=== PATIENT | male | born 1955 | race African-American/Black ===

== ENCOUNTER 2017-01-19 20:59 | Emergency (ER) | payer MEDICAID, OTHER ==
[~2017-01-19] VITALS: Ht 185.4 cm; Wt 88.0 kg
[~2017-01-19 20:59] MED LIST: ALLO100T PO; CLON0.1T PO; COLC0.6T66 PO; DOXA4TAB3 PO; NEPVIT PO; NIFE60TA64 PO; P20 PO; SEVE800T8 PO
[2017-01-19] MEDS ORDERED: MORPHINE SULFATE 4 MG/ML CPJ (NOT FOR IM USE) IV STA (23:18)
[2017-01-19] MEDS ORDERED: ONDANSETRON HCL 4MG/2ML VIAL IV STA (23:18)
[2017-01-19 23:56] LABS: BASOPHILS % 0.7 % (0.0-2.0); EOSINOPHILS % 1.2 % (0.0-5.0); HEMATOCRIT. 35.9 % (42.0-52.0); LYMPHOCYTES % 9.7 % (20.0-50.0); MEAN CORPUSCULAR VOLUME 89.3 fL (80.0-94.0); MEAN PLATELET VOLUME 8.5 fl (7.4-10.4); NEUTROPHILS % 81.4 % (40.0-76.0); PLATELET 208 x1000/uL (130-400); RED BLOOD CELL COUNT 4.02 mill/uL (4.7-6.1); RED CELL DISTRIBUTION WIDTH 16.6 % (11.6-14.6)
[2017-01-20 00:12] LABS: TROPONIN I 0.04 ng/mL (0.00-0.04)
[2017-01-20] MEDS ORDERED: HYDROCODONE/ACETAMINOPHEN 10/325MG TABLET PO ONE (01:45)
[2017-01-20] MEDS ORDERED: LEVOFLOXACIN 500MG TABLET PO ONE (01:45)
[2017-01-20 02:13] VITALS: BP 159/81
== END 2017-01-20 02:17 | disposition home or self-care (01) ==
LOC: ER 20:59
DX: R06.02 Shortness of breath (principal)
CPT/HCPCS: 36415; 71010; 80048; 83605; 84484; 85025; 87040; 93005; 96374; 96375; 99285; J2270; J2405; Z7610

== ENCOUNTER 2017-03-03 13:47 | Emergency (ER) | payer OTHER, MEDICARE ==
[~2017-03-03] VITALS: Ht 185.4 cm; Wt 86.0 kg
[2017-03-03 14:26] VITALS: BP 159/102
== END 2017-03-03 18:13 | disposition home or self-care (01) ==
LOC: ER 14:47
DX: K40.90 Unilateral inguinal hernia, without obstruction or gangrene, not specified as recurrent (principal); I12.9 Hypertensive chronic kidney disease with stage 1 through stage 4 chronic kidney disease, or unspecified chronic kidney disease; N18.9 Chronic kidney disease, unspecified; E11.9 Type 2 diabetes mellitus without complications; Z99.2 Dependence on renal dialysis; Z88.8 Allergy status to other drugs, medicaments and biological substances
CPT/HCPCS: 99283

== ENCOUNTER 2021-06-25 13:12 | Inpatient (IN) | payer MEDICARE, MEDICAID ==
[~2021-06-25] VITALS: Ht 185.4 cm; Wt 83.1 kg
[~2021-06-25 13:12] MED LIST changes: +MINO10TA PO; +NIFE60TA77 PO
[2021-06-25] MEDS ORDERED: FUROSEMIDE 40MG/4ML VIAL IV ONE (13:30)
[2021-06-25 14:14] LABS: HEMATOCRIT. 36.1 % (42.0-52.0); HEMOGLOBIN. 11.8 g/dL (14.0-18.0); MEAN CORPUSCULAR HEMOGLOBIN 30.4 pg (28.0-32.0); MEAN PLATELET VOLUME 7.5 fl (7.4-10.4); PLATELET 240 x1000/uL (130-400); RED BLOOD CELL COUNT 3.88 mill/uL (4.7-6.1); RED CELL DISTRIBUTION WIDTH 17.7 % (11.6-14.6)
[2021-06-25 14:21] LABS: CHLORIDE 104 mEq/L (98-107)
[2021-06-25] MEDS ORDERED: DEXTROSE 50% WATER 50ML SYRINGE IV NR (14:30)
[2021-06-25] MEDS ORDERED: ASPIRIN 325MG EC TABLET PO NR (14:45)
[2021-06-25] MEDS ORDERED: AZITHROMYCIN 500MG/250ML 250 ML IV ONE (15:00)
[2021-06-25] MEDS ORDERED: CEFTRIAXONE 1 G PREMIX 50 ML IV ONE (15:00)
[2021-06-25] MEDS ORDERED: FUROSEMIDE 40MG/4ML VIAL IVP ONE (15:00)
[2021-06-25] MEDS ORDERED: AZITHROMYCIN 500 MG in DEXT 5% WATER 250 ML IV ONE (15:11)
[2021-06-25 15:20] LABS: PLATELET ESTIMATE NORMAL
[2021-06-25 15:44] LABS: INR 1.1; PROTHROMBIN TIME 11.8 sec (9.6-11.0)
[2021-06-25] MEDS: LOSARTAN POTASSIUM 100 MG TABLET PO SCH (16:15)
[2021-06-25 16:33] LABS: CREATINE KINASE 166 IU/L (39-308)
[2021-06-25 16:52] LABS: HEPATITIS B SURFACE ANTIGEN NEGATIVE
[2021-06-25] MEDS: ALLOPURINOL 100 MG TABLET PO SCH (16:53)
[2021-06-25] MEDS: MINOXIDIL 10MG TABLET PO SCH (16:53)
[2021-06-25] MEDS: METOPROLOL TARTRATE 50MG TABLET PO SCH (17:00)
[2021-06-25] MEDS ORDERED: ACETAMINOPHEN 325MG TABLET PO PRN (19:00)
[2021-06-25] MEDS ORDERED: ONDANSETRON HCL 4MG/2ML INJ IV PRN (19:00)
[2021-06-25] MEDS ORDERED: CLONIDINE 0.1MG TABLET PO PRN (19:00)
[2021-06-25] MEDS ORDERED: MAGNESIUM/ALUMINUM HYDROXIDE/SIMETHICONE 30ML UDC PO PRN (19:00)
[2021-06-25] MEDS ORDERED: GUAIFENESIN 200MG/10ML SUGAR FREE UDC PO PRN (19:00)
[2021-06-25] MEDS ORDERED: ZOLPIDEM TARTRATE 5MG TABLET PO PRN (21:00)
[2021-06-25] MEDS: SODIUM CHLORIDE 0.9% INJ 3ML FLUSH IVF SCH (22:55)
[2021-06-26 02:37] VITALS: BP 121/72
[2021-06-26] MEDS ORDERED: LOSA100T32 PO (02:38)
[2021-06-26] MEDS ORDERED: MELO-106 PO (02:38)
[2021-06-26] MEDS: SODIUM CHLORIDE 0.9% INJ 3ML FLUSH IVF SCH ×3 (05:48→21:28)
[2021-06-26 07:52] LABS: CHLORIDE 105 mEq/L (98-107)
[2021-06-26 07:58] LABS: HEMATOCRIT. 30.9 % (42.0-52.0); HEMOGLOBIN. 10.2 g/dL (14.0-18.0); MEAN CORPUSCULAR HEMOGLOBIN 30.6 pg (28.0-32.0); MEAN CORPUSCULAR VOLUME 92.2 fL (80.0-94.0); MEAN PLATELET VOLUME 7.7 fl (7.4-10.4); PLATELET 228 x1000/uL (130-400); RED BLOOD CELL COUNT 3.35 mill/uL (4.7-6.1); RED CELL DISTRIBUTION WIDTH 17.5 % (11.6-14.6)
[2021-06-26 08:00] VITALS: BP 124/76
[2021-06-26 08:00] LABS: PHOSPHORUS 4.8 mg/dL (2.5-4.9)
[2021-06-26] MEDS: MINOXIDIL 10MG TABLET PO SCH ×2 (08:51→16:17)
[2021-06-26] MEDS: ALLOPURINOL 100 MG TABLET PO SCH (08:51)
[2021-06-26] MEDS: METOPROLOL TARTRATE 50MG TABLET PO SCH ×2 (08:51→20:31)
[2021-06-26] MEDS: LOSARTAN POTASSIUM 100 MG TABLET PO SCH (08:52)
[2021-06-26 12:00] VITALS: BP 124/66
[2021-06-26 12:23] LABS: PLATELET ESTIMATE NORMAL
[2021-06-26 16:00] VITALS: BP 130/82
[2021-06-26] MEDS: ACETAMINOPHEN 325MG TABLET PO PRN ×2 (16:16→20:09)
[2021-06-26 20:00] VITALS: BP 165/72
[2021-06-27] VITALS (7 sets, daily range): BP systolic 101–130; BP diastolic 55–81
[2021-06-27] MEDS: SODIUM CHLORIDE 0.9% INJ 3ML FLUSH IVF SCH ×2 (05:16→14:24)
[2021-06-27 07:29] LABS: HEMATOCRIT. 31.1 % (42.0-52.0); HEMOGLOBIN. 10.2 g/dL (14.0-18.0); MEAN CORPUSCULAR HEMOGLOBIN 30.8 pg (28.0-32.0); MEAN CORPUSCULAR VOLUME 93.9 fL (80.0-94.0); MEAN PLATELET VOLUME 7.9 fl (7.4-10.4); PLATELET 227 x1000/uL (130-400); RED BLOOD CELL COUNT 3.32 mill/uL (4.7-6.1); RED CELL DISTRIBUTION WIDTH 17.8 % (11.6-14.6)
[2021-06-27 07:56] LABS: PHOSPHORUS 5.1 mg/dL (2.5-4.9)
[2021-06-27] MEDS: METOPROLOL TARTRATE 50MG TABLET PO SCH ×3 (09:00→20:58)
[2021-06-27] MEDS: LOSARTAN POTASSIUM 100 MG TABLET PO SCH (09:32)
[2021-06-27] MEDS: MINOXIDIL 10MG TABLET PO SCH ×2 (09:32→16:38)
[2021-06-27] MEDS: ALLOPURINOL 100 MG TABLET PO SCH (09:32)
[2021-06-27] MEDS ORDERED: SODIUM BICARBONATE 4% (2.4MEQ) 5ML VIAL IV ONE (10:15)
[2021-06-27] MEDS ORDERED: MELOXICAM 15 MG TABLET PO SCH (14:00)
[2021-06-27] MEDS: ACETAMINOPHEN 325MG TABLET PO PRN (16:38)
[2021-06-27 20:33] LABS: PLATELET ESTIMATE NORMAL
== END 2021-06-27 21:15 | disposition home or self-care (01) | DRG 291 ==
LOC: EDBEDREQTM 13:51 → EDBEDREQ 14:16 → EDBEDREQTM 14:16 → EDBEDREQSVC 14:16 → ER 14:56 → MICUSO 15:23 → EDBEDREQ 15:33 → 8WST 06-26 02:18
PROVIDERS: ADMIT Internal Medicine; ATTEND Internal Medicine
PROC: 5A1D70Z Performance of Urinary Filtration, Intermittent, Less than 6 Hours Per Day (ICD-10-PCS; 2021-06-26)
PROC: 0W993ZZ Drainage of Right Pleural Cavity, Percutaneous Approach (ICD-10-PCS; principal; 2021-06-27)
PROC: 5A1D70Z Performance of Urinary Filtration, Intermittent, Less than 6 Hours Per Day (ICD-10-PCS; 2021-06-27)
DX: I13.2 Hypertensive heart and chronic kidney disease with heart failure and with stage 5 chronic kidney disease, or end stage renal disease (principal); J96.01 Acute respiratory failure with hypoxia; N18.6 End stage renal disease; I48.20 Chronic atrial fibrillation, unspecified; N25.81 Secondary hyperparathyroidism of renal origin; J91.8 Pleural effusion in other conditions classified elsewhere; Z20.822 Contact with and (suspected) exposure to COVID-19; D63.8 Anemia in other chronic diseases classified elsewhere; M10.9 Gout, unspecified; E83.39 Other disorders of phosphorus metabolism; I50.9 Heart failure, unspecified; M19.90 Unspecified osteoarthritis, unspecified site; Z79.899 Other long term (current) drug therapy; Z87.01 Personal history of pneumonia (recurrent); Z99.2 Dependence on renal dialysis; Z82.3 Family history of stroke; Z82.49 Family history of ischemic heart disease and other diseases of the circulatory system; Z91.15 Patient's noncompliance with renal dialysis; Z88.8 Allergy status to other drugs, medicaments and biological substances; Z79.52 Long term (current) use of systemic steroids
CPT/HCPCS: 32555; 36415; 71045; 80048; 80053; 82550; 83735; 83880; 84100; 84484; 84550; 85025; 86705; 86709; 86803; 87340; 87426; 93005; 93306; 99291; A6261; J0456; J0696; J1940; J3490; J7060

== ENCOUNTER 2022-03-01 13:41 | Inpatient (IN) | payer MEDICARE, MEDICAID ==
[~2022-03-01] VITALS: Ht 185.4 cm; Wt 68.0 kg
[~2022-03-01 13:41] MED LIST changes: +LOSA100T32 PO; +MELO-106 PO
[2022-03-01] MEDS ORDERED: MORPHINE SULFATE 4 MG/ML CPJ (NOT FOR IM USE) IV STA (15:08)
[2022-03-01 15:23] LABS: CHLORIDE 102 mEq/L (98-107)
[2022-03-01 15:28] LABS: INR 1.2; PROTHROMBIN TIME 12.9 sec (9.6-11.0)
[2022-03-01] MEDS ORDERED: ONDANSETRON HCL 4MG/2ML INJ IV ONE (15:30)
[2022-03-01 15:34] LABS: BASOPHILS % 1.7 % (0.0-2.0); EOSINOPHILS % 3.7 % (0.0-5.0); HEMATOCRIT. 39.7 % (42.0-52.0); HEMOGLOBIN. 12.8 g/dL (14.0-18.0); LYMPHOCYTES % 12.4 % (20.0-50.0); MEAN CORPUSCULAR HEMOGLOBIN 31.1 pg (28.0-32.0); MEAN CORPUSCULAR VOLUME 96.9 fL (80.0-94.0); MEAN PLATELET VOLUME 8.1 fl (7.4-10.4); MONOCYTES % 9.9 % (2.0-8.0); NEUTROPHILS % 72.3 % (40.0-76.0); PLATELET 168 x1000/uL (130-400); RED CELL DISTRIBUTION WIDTH 24.5 % (11.6-14.6)
[2022-03-01 16:57] LABS: PLATELET ESTIMATE NORMAL
[2022-03-01] MEDS ORDERED: IPRATROPIUM/ALBUTEROL 0.5-3(2.5)MG/3ML NEB HHN PRN (19:15)
[2022-03-01] MEDS ORDERED: CLONIDINE 0.1MG TABLET PO PRN (19:15)
[2022-03-01] MEDS ORDERED: DOCUSATE SODIUM 100MG CAPSULE PO PRN (19:15)
[2022-03-01] MEDS ORDERED: ONDANSETRON HCL 4MG/2ML INJ IV PRN (19:15)
[2022-03-01] MEDS ORDERED: MAGNESIUM/ALUMINUM HYDROXIDE/SIMETHICONE 30ML UDC PO PRN (19:15)
[2022-03-01] MEDS: LOSARTAN POTASSIUM 100 MG TABLET PO SCH (19:48)
[2022-03-01] MEDS: ENOXAPARIN 30MG/0.3ML SYR SUBCUT SCH (20:00)
[2022-03-01 20:27] LABS: HEPATITIS B SURFACE ANTIGEN NEGATIVE
[2022-03-01] MEDS ORDERED: ZOLPIDEM TARTRATE 5MG TABLET PO PRN (20:30)
[2022-03-01] MEDS ORDERED: KETOROLAC 15MG/ML VIAL IV NR (20:45)
[2022-03-01] MEDS: DOXAZOSIN MESYLATE 4MG TABLET PO SCH (21:00)
[2022-03-01 23:20] VITALS: BP 102/60
[2022-03-02] VITALS: BP 102/60
[2022-03-02 03:50] VITALS: BP 106/66
[2022-03-02] MEDS: SEVELAMER CARBONATE 800 MG TABLET PO SCH ×3 (07:50→17:40)
[2022-03-02 08:00] VITALS: BP 110/54
[2022-03-02] MEDS ORDERED: NIFEDIPINE XL 60MG TAB PO SCH ×2 (09:00)
[2022-03-02] MEDS: CLONIDINE 0.1MG TABLET PO SCH ×2 (09:00→20:19)
[2022-03-02] MEDS ORDERED: MINOXIDIL 10MG TABLET PO SCH (09:00)
[2022-03-02] MEDS ORDERED: MELOXICAM 7.5MG TABLET PO SCH (09:00)
[2022-03-02] MEDS ORDERED: MINOXIDIL 2.5MG TABLET PO SCH (09:00)
[2022-03-02] MEDS: LOSARTAN POTASSIUM 100 MG TABLET PO SCH (09:00)
[2022-03-02 09:06] LABS: BASOPHILS % 1.8 % (0.0-2.0); EOSINOPHILS % 5.1 % (0.0-5.0); HEMATOCRIT. 33.3 % (42.0-52.0); HEMOGLOBIN. 10.9 g/dL (14.0-18.0); LYMPHOCYTES % 15.6 % (20.0-50.0); MEAN CORPUSCULAR HEMOGLOBIN 31.9 pg (28.0-32.0); MEAN CORPUSCULAR VOLUME 97.3 fL (80.0-94.0); MEAN PLATELET VOLUME 7.7 fl (7.4-10.4); MONOCYTES % 9.8 % (2.0-8.0); NEUTROPHILS % 67.7 % (40.0-76.0); PLATELET 116 x1000/uL (130-400); RED BLOOD CELL COUNT 3.42 mill/uL (4.7-6.1); RED CELL DISTRIBUTION WIDTH 23.7 % (11.6-14.6)
[2022-03-02] MEDS: FOLIC ACID/VITAMIN B COMP W-C TABLET PO SCH (10:06)
[2022-03-02] MEDS: ALLOPURINOL 100 MG TABLET PO SCH (10:06)
[2022-03-02] MEDS ORDERED: ACETAMINOPHEN 325MG TABLET PO NR (10:45)
[2022-03-02] MEDS ORDERED: CEFTRIAXONE 1 G PREMIX 50 ML IV SCH (11:00)
[2022-03-02 12:00] VITALS: BP 91/52
[2022-03-02] MEDS ORDERED: KETOROLAC 15MG/ML VIAL IV PRN (15:45)
[2022-03-02 16:00] VITALS: BP 102/44
[2022-03-02] MEDS: CEFTRIAXONE 1,000 MG in DEXTROSE 5% WATER 50 ML IV SCH (17:41)
[2022-03-02 18:31] LABS: INR 1.2; PROTHROMBIN TIME 12.7 sec (9.6-11.0)
[2022-03-02] MEDS ORDERED: DICYCLOMINE HCL 20MG TABLET PO NR (18:45)
[2022-03-02 20:00] VITALS: BP 106/58
[2022-03-02] MEDS: ENOXAPARIN 30MG/0.3ML SYR SUBCUT SCH (20:05)
[2022-03-02] MEDS: DOXAZOSIN MESYLATE 4MG TABLET PO SCH (20:18)
[2022-03-02] MEDS ORDERED: NALOXONE HCL 0.4MG/ML VIAL IV PRN (21:30)
[2022-03-02] MEDS: HYDROMORPHONE HCL/PF 2MG/ML CPJ IV PRN (21:49)
[2022-03-02] MEDS: DICYCLOMINE HCL 10MG CAPSULE PO SCH (23:19)
[2022-03-03] VITALS (7 sets, daily range): BP systolic 102–113; BP diastolic 44–66
[2022-03-03] MEDS: DICYCLOMINE HCL 10MG CAPSULE PO SCH (06:00)
[2022-03-03 06:56] LABS: BASOPHILS % 1.2 % (0.0-2.0); EOSINOPHILS % 4.8 % (0.0-5.0); HEMATOCRIT. 35.2 % (42.0-52.0); HEMOGLOBIN. 11.3 g/dL (14.0-18.0); LYMPHOCYTES % 10.7 % (20.0-50.0); MEAN CORPUSCULAR HEMOGLOBIN 31.4 pg (28.0-32.0); MEAN CORPUSCULAR VOLUME 97.7 fL (80.0-94.0); MEAN PLATELET VOLUME 7.9 fl (7.4-10.4); MONOCYTES % 9.8 % (2.0-8.0); NEUTROPHILS % 73.5 % (40.0-76.0); PLATELET 112 x1000/uL (130-400); RED CELL DISTRIBUTION WIDTH 22.8 % (11.6-14.6)
[2022-03-03 07:04] LABS: INR 1.2; PROTHROMBIN TIME 12.8 sec (9.6-11.0)
[2022-03-03] MEDS ORDERED: DICYCLOMINE HCL 10MG CAPSULE PO PRN (07:15)
[2022-03-03] MEDS ORDERED: ALBUMIN HUMAN 25GM/100ML (25%) IV NR (07:30)
[2022-03-03] MEDS: SEVELAMER CARBONATE 800 MG TABLET PO SCH ×2 (07:50→12:50)
[2022-03-03 08:01] LABS: PHOSPHORUS 8.1 mg/dL (2.5-4.9)
[2022-03-03] MEDS: ALLOPURINOL 100 MG TABLET PO SCH (09:00)
[2022-03-03] MEDS: CLONIDINE 0.1MG TABLET PO SCH (09:00)
[2022-03-03] MEDS: FOLIC ACID/VITAMIN B COMP W-C TABLET PO SCH (09:00)
[2022-03-03] MEDS: HYDROMORPHONE HCL/PF 2MG/ML CPJ IV PRN (09:17)
[2022-03-03] MEDS ORDERED: HYDROCODONE/ACETAMINOPHEN 5/325MG TABLET PO PRN (10:45)
[2022-03-03] MEDS ORDERED: LIDOCAINE HCL 1% 30ML VIAL (10MG/ML) ONE (11:22)
[2022-03-03] MEDS ORDERED: SODIUM BICARBONATE 4% (2.4MEQ) 5ML VIAL IV ONE (11:22)
[2022-03-03] MEDS ORDERED: APIXABAN 2.5 MG TABLET PO SCH (12:30)
[2022-03-03] MEDS ORDERED: APIXABAN 5 MG TABLET PO SCH (13:00)
[2022-03-03] MEDS: CEFTRIAXONE 1,000 MG in DEXTROSE 5% WATER 50 ML IV SCH (14:12)
[2022-03-03] MEDS ORDERED: APIX5TAB PO (15:44)
[2022-03-03] MEDS ORDERED: SEVELAMER CARBONATE 800 MG TABLET PO SCH (17:50)
[2022-03-10] MEDS ORDERED: OMEP20CA14 PO (18:21)
[2022-03-10] MEDS ORDERED: SUCR1TAB MT (18:21)
== END 2022-03-03 19:50 | disposition home or self-care (01) | DRG 432 ==
LOC: ER 13:41 → EDBEDREQSVC 18:41 → EDBEDREQTM 20:18 → ENRESERV 22:45 → 6WST 23:35
PROVIDERS: ADMIT Internal Medicine Pulmonary Disease; ATTEND Internal Medicine Pulmonary Disease
PROC: 0W9G3ZZ Drainage of Peritoneal Cavity, Percutaneous Approach (ICD-10-PCS; principal; 2022-03-03)
DX: K74.60 Unspecified cirrhosis of liver (principal); E43 Unspecified severe protein-calorie malnutrition; N18.6 End stage renal disease; R18.8 Other ascites; I13.2 Hypertensive heart and chronic kidney disease with heart failure and with stage 5 chronic kidney disease, or end stage renal disease; J84.9 Interstitial pulmonary disease, unspecified; Z20.822 Contact with and (suspected) exposure to COVID-19; I48.91 Unspecified atrial fibrillation; I50.9 Heart failure, unspecified; K57.90 Diverticulosis of intestine, part unspecified, without perforation or abscess without bleeding; J44.9 Chronic obstructive pulmonary disease, unspecified; E83.39 Other disorders of phosphorus metabolism; D63.1 Anemia in chronic kidney disease; M17.0 Bilateral primary osteoarthritis of knee; I27.29 Other secondary pulmonary hypertension; M10.9 Gout, unspecified; N28.1 Cyst of kidney, acquired; Z91.15 Patient's noncompliance with renal dialysis; Z99.2 Dependence on renal dialysis
CPT/HCPCS: 36415; 49083; 71045; 74176; 76700; 80048; 80053; 80061; 80076; 82040; 82140; 83605; 83735; 83880; 84100; 84443; 84484; 85025; 86705; 86709; 86803; 87340; 87426; 88108; 88312; 94640; 97162; 99285; J0696; J1170; J1650; J1885; J2270; J2405; J3490; J7060; P9047